=== PATIENT | female | born 2000 | race Caucasian/White ===

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

== ENCOUNTER 2021-05-07 16:09 | Inpatient (IN) ==
[2021-05-07] MEDS ORDERED: Famotidine 20 MG/2 ML VIAL IVP PRN (16:11)
[2021-05-07] MEDS ORDERED: Ondansetron 4 MG/2 ML VIAL IVP PRN (16:11)
[2021-05-07] MEDS ORDERED: Azithromycin 500 MG in 0.9 % Sodium Chloride 250 ML IVPB PRN (16:11)
[2021-05-07] MEDS ORDERED: miSOPROStoL 25 MCG TABLET PO PRN (16:11)
[2021-05-07] MEDS ORDERED: Metoclopramide 10 MG/2 ML VIAL IVP PRN (16:11)
[2021-05-07] MEDS ORDERED: *HR* Nalbuphine 10 MG/ML AMPUL IV PRN (16:11)
[2021-05-07] MEDS ORDERED: Naloxone 0.4 MG/ML INJ IVP PRN (16:11)
[2021-05-07] MEDS ORDERED: Lidocaine 1% 20 ML MDV INFILT PRN (16:11)
[2021-05-07] MEDS ORDERED: Oxytocin 20 units/ LR 1000 mL 20 UNIT/1,000 ML BAG IVC SCH (16:15)
[2021-05-07] MEDS ORDERED: EPHEDrine 50 MG/ML VIAL IVP PRN (17:59)
[2021-05-07] MEDS ORDERED: Epidural Premix (fent/bupiv) 110 ML EP SCH (18:00)
[2021-05-07 18:27] LABS: Basophils % 0.3 %; Eosinophils # 0.1 K/mcL (0.0-0.6); Eosinophils % 0.8 %; Hematocrit 33.9 % (35.3-44.9); Hemoglobin 11.5 g/dL (11.5-15.4); Immature Granulocytes % 1.1 % (0-4); Lymphocytes % 14.2 %; Mean Corpuscular HGB Conc 33.9 g/dL (31.6-35.5); Mean Corpuscular Hemoglobin 34.1 pg (28.0-33.3); Mean Corpuscular Volume 100.6 fL (83.0-100.0); Monocytes # 0.7 K/mcL (0.0-1.3); Monocytes % 5.1 %; Neutrophils # 10.9 K/mcL (1.6-8.9); Platelet Count 233 K/mcL (140-400); Red Blood Count 3.37 M/mcL (3.82-4.97); Red Cell Distribution Width 13.2 % (11.5-14.5); Segmented Neutrophils % 78.5 %; White Blood Count 13.8 K/mcL (4.3-11.1)
[2021-05-07 18:36] LABS: Amphetamine Screen,Urine Negative ng/mL (Cutoff=1000); Barbiturate Screen,Urine Negative ng/mL (Cutoff=200); Benzodiazepines Screen,Urine Negative ng/mL (Cutoff=200); Cannabinoid Screen,Urine Negative ng/mL (Cutoff = 50); Cocaine Screen,Urine Negative ng/mL (Cutoff= 300); Opiate Screen,Urine Negative ng/mL (Cutoff=300); Phencyclidine Screen,Urine Negative ng/mL (Cutoff=25)
[2021-05-07 19:09] LABS: Influenza A PCR Negative (Negative); Influenza B PCR Negative (Negative); Resp. Syncytial Virus PCR Negative (Negative); SARS-CoV-2 by PCR (In House) Negative (Negative)
[2021-05-07] MEDS: Ringers Solution, Lactated 1,000 ML IVC SCH (19:30)
[2021-05-08] MEDS: Ringers Solution, Lactated 1,000 ML IVC SCH ×2 (03:00→06:08)
[2021-05-08] MEDS ORDERED: *HR* FentaNYL (PF) 100 MCG/2 ML VIAL ONE (05:48)
[2021-05-08] MEDS ORDERED: Ropivacaine/PF 0.2% 20 ML VIAL ONE (05:48)
[2021-05-08] MEDS ORDERED: Lanolin 7 G OINT...G. TP PRN (10:12)
[2021-05-08] MEDS ORDERED: Ondansetron ODT 4 MG TAB.RAPDIS SL PRN (10:12)
[2021-05-08] MEDS ORDERED: Benzocaine/Menthol 56 GM AEROSOL SPRAY TP PRN (10:12)
[2021-05-08] MEDS ORDERED: Oxytocin 20 units/ LR 1000 mL 20 UNIT/1,000 ML BAG IVC SCH (10:12)
[2021-05-08] MEDS ORDERED: Prenatal Vit/FA 1 EACH TABLET PO SCH (10:12)
[2021-05-08] MEDS ORDERED: Measles/Mumps/Rubella Vacc 0.5 ML VIAL SQ PRN (10:12)
[2021-05-08] MEDS: Ibuprofen 600 MG TABLET PO SCH ×2 (12:52→19:22)
[2021-05-08] MEDS: Acetaminophen 325 MG TABLET PO SCH (16:20)
[2021-05-08 19:29] VITALS: O2SAT 99
[2021-05-09 06:32] VITALS: BP 116/76; PULSE 68; TEMP 97.8
[2021-05-09] MEDS: Acetaminophen 325 MG TABLET PO SCH (08:38)
[2021-05-09] MEDS: Ibuprofen 600 MG TABLET PO SCH (08:38)
== END 2021-05-09 12:47 | disposition home or self-care (01) | DRG 560 ==
LOC: 1NENULAB 16:09 → 1NENUOBS 05-08 10:50
PROVIDERS: ADMIT Advanced Practice Midwife; ATTEND Advanced Practice Midwife